=== PATIENT | female | born 1975 | race Caucasian/White ===

== ENCOUNTER 2020-04-07 15:30 | Emergency (ER) | payer MEDICARE, MEDICAID, SELFPAY ==
[2020-04-07 16:01] VITALS: BP 125/87; PULSE 115; RESP 20; TEMP 36.9; O2SAT 96; BMI 28.2
[2020-04-07 16:05] VITALS: BP 125/87; PULSE 115; RESP 20; TEMP 36.9; O2SAT 96
--- NOTE | 2020-04-07 16:17 | PC.NURSE ---
Med rec completed with [facility] pharmacy, pt states she only takes gabapentin at this time.
--- NOTE | 2020-04-07 16:28 | ED_ITS ---
HPI - Psych General Chief Complaint: ETOH/Substance Use Stated Complaint: PSYCH EVAL Time Seen by Provider: 04/07/20 16:26 Source: patient and EMS Mode of arrival: EMS Limitations: no limitations History of Present Illness HPI Narrative: This is a 44-year-old female came in by ambulance after having a verbal argument with her ex partner, patient feels depressed and frustrated because of the patient declined SI or HI. Patient has been of drugs has been on methadone she did not take for the past 8 days. Today patient admitted to drinking plenty of heavy liquor. Patient otherwise declined any other medical complaints. Despite patient declined any physical injury police was involved in the case. Related Data Home Medications Medication Instructions Recorded Confirmed acamprosate 333 mg PO BID 04/07/20 04/07/20 baclofen 1 tab PO DAILY 04/07/20 04/07/20 buspirone 10 mg PO DIRECTED 04/07/20 04/07/20 folic acid 1 tab PO DAILY 04/07/20 04/07/20 gabapentin 1 tab PO TID 04/07/20 04/07/20 gabapentin 400 mg PO TID 04/07/20 04/07/20 thiamine HCl (vitamin B1) 1 ea PO DAILY 04/07/20 04/07/20 Allergies Allergy/AdvReac Type Severity Reaction Status Date / Time penicillin V Allergy Unknown hives Unverified 02/20/19 00:00 Penicillins [PENICILLINS] Allergy Unknown HIVES Unverified 12/14/19 16:56 Review of Systems Review of Systems: All other systems are reviewed and are negative Constitutional: Reports as per HPI and Reports no additional constitutional complaints Eyes: Reports as per HPI and Reports no additional eye complaints Reports system reviewed and no additional complaints, except as documented Cardiovascular: Reports as per HPI and Reports no additional cardiovascular complaints Respiratory: Reports as per HPI and Reports no additional respiratory complaints Gastrointestinal: Reports as per HPI and Reports no additional gastrointestinal complaints Genitourinary: Reports no additional female genitourinary complaints Musculoskeletal: Reports no additional musculoskeletal complaints Skin/Breast: Reports system reviewed and no additional complaints, except as docu Psychiatric: Reports no additional psychiatric complaints Endocrine: Reports no additional endocrine complaints Hematologic/Lymphatic: Reports no additional hematologic/lymphatic complaints Allergic/Immunologic: Reports no additional allergic/immunologic complaints Reports system reviewed and no additional complaints, except as documented and Reports Abnormal speech present [facility] Social History Social History Alcohol intake: current Alcohol intake frequency: 3 or more drinks per day Alcohol type: hard liquor Smoking Status: Current every day smoker Use of substances other than those prescribed or required for medical reasons: Unknown Advance Directives: No Advance Directives Information Provided: No Physical Exam Vital Signs: Vital Signs: Last Vital Signs Temp 98.5 F 04/07/20 16:05 Pulse 115 H 04/07/20 16:05 Resp 20 04/07/20 16:05 BP 125/87 04/07/20 16:05 Pulse Ox 96 04/07/20 16:05 Body Mass Index 28.2 Vital signs have been reviewed as normal and appeared to be correct. Blood pressure normal. Tachycardia. Respiration rate normal. Temperature normal. Oxygen saturation normal. Appearance: Alert. Oriented X3. No acute distress. Head: Normal external exam. Normocephalic. Atraumatic. No Streeter signs noted. No raccoon eyes noted Eyes: PERRLA. EOMI. Conjunctiva and sclera normal. Eyelids normal. ENT: EAC normal. TM's Normal. Pharynx normal. Uvula midline. Moist mucous membranes. No trismus noted. No drooling noted. No muffled voice noted. Neck: Normal inspection. Neck supple. FROM. No adenopathy. Thyroid Normal. No meningeal signs. No neck mass noted. CVS: Normal heart rate and rhythm. Heart sound normal. No murmurs noted. Pulses normal throughout. Respiratory: No respiratory distress. Painless inspiration. Breath sounds normal. No wheezes/rales/rhonchi noted. Chest nontender. No accessory muscle usage noted or decreased air movement noted. Abdomen: Soft and nontender. Bowel sounds normal in all 4 quadrants. No distention noted. No organomegaly noted. No visible injury noted. Back: No CVA tenderness. Full range of motion noted. Skin: Skin warm and dry. Normal skin color. Normal skin turgor. No rashes/lesions/lacerations noted. Extremities: No lower extremity edema. Extremities exhibit normal range of motion. Extremities nontender. Neuro: Oriented X 3. No motor deficit. No sensory deficit. Reflexes normal. MDM - Psych Restraints Face to Face Assessment: Face to Face Assessment: Current Situation: After assessment of the patient, a review of the pertinent medical record and a discussion with nursing staff, I feel the patient requires a restrain intervention. Reaction To: [] Medical Condition: [] Behavioral State: [] Continued Need: [] Discharge Plan Discharge Prescriptions: No Action gabapentin 400 mg capsule 400 mg PO TID RF: 0 thiamine HCl (vitamin B1) 100 mg tablet 1 ea PO DAILY RF: 0 gabapentin 800 mg tablet 1 tab PO TID RF: 0 baclofen 10 mg tablet 1 tab PO DAILY RF: 0 buspirone 10 mg tablet 10 mg PO DIRECTED RF: 0 folic acid 1 mg tablet 1 tab PO DAILY RF: 0 acamprosate 333 mg tablet,delayed release (DR/EC) 333 mg PO BID RF: 0
[2020-04-07 17:22] LABS: Ethanol 403 mg/dL
--- NOTE | 2020-04-07 18:05 | MHC.RECOVSUP ---
? Reason for consult o Current location: [facility] o Identified substance use concern: Alcohol - Withdrawal and Mental health concern - Looking for Support ? Intervention: o Community resources provided o Harm reduction discussion ? Plan: o Patient waiting to be seen by [facility] (Crisis evaluation) o Patient to follow up with [facility] after discharge ? Additional information: Patient reported That patient was on MAT (Methadone) 8 days ago and did not want any Medications (MAT).
[2020-04-07] MEDS: LORazepam 1 MG TABLET 2 MG PO ×2 (18:41→23:31)
--- NOTE | 2020-04-07 19:24 | PC.NURSE ---
Report received. PT is at the nurse's station expressing concerns that she will be kicked out in the middle of the night. This nurse informed the PT that she will held here until here BAL decreased to a safe level but she would need to reach out to detox facilities in the morning.
[2020-04-07] MEDS: Gabapentin 400 MG CAPSULE PO (21:58)
[2020-04-07] MEDS: Gabapentin 400 MG CAPSULE 800 MG PO (21:58)
[2020-04-07 23:53] VITALS: BP 133/86; PULSE 98; RESP 18; O2SAT 96
--- NOTE | 2020-04-08 07:19 | PC.NURSE ---
Report received from FEDERICA Saunders. Pt resting, resp unlabored.
[2020-04-08] MEDS: Gabapentin 400 MG CAPSULE 800 MG PO (09:18)
[2020-04-08] MEDS: Gabapentin 400 MG CAPSULE PO (09:18)
[2020-04-08] MEDS: LORazepam 1 MG TABLET PO (09:18)
[2020-04-08 09:36] VITALS: BP 147/110; PULSE 121; TEMP 37; O2SAT 96
--- NOTE | 2020-04-08 09:39 | MHC.RECOVSUP ---
Recovery Support note: Patient is a 44 year old [place]ian speaking female who presented [place] [facility] [place]. Patient reports she stopped using methadone 9 days ago and has been drinking heavily since then. Patient reports drinking 1-2 pints of vodka daily and is reporting withdrawal symptoms. RN aware. Patient has been referred to [facility], [facility] and [facility]. This science writer awaits follow up from these facilities.
--- NOTE | 2020-04-08 09:40 | PC.NURSE ---
Late enrty: Pt medicated as ordered for [facility] 13Christ A Elvin notified of current [facility]WA reading. Care team in to assist pt to obtain bed in detox.
[2020-04-08 10:00] VITALS: RESP 20
[2020-04-08 10:35] VITALS: BP 134/95; PULSE 89; RESP 20; O2SAT 20
[2020-04-08] MEDS: LORazepam 1 MG TABLET 2 MG PO (11:03)
--- NOTE | 2020-04-08 12:19 | PC.NURSE ---
Pt given discharge instructions, verbalized understanging of instructions. Pt gait steady, states she is ready to leave. Transportation arranged by CARE team.
== END 2020-04-08 12:22 | disposition home or self-care (01) ==
PROVIDERS: Emergency Provider Emergency Medicine
DX: F33.1 Major depressive disorder, recurrent, moderate (principal); F43.9 Reaction to severe stress, unspecified; Z79.899 Other long term (current) drug therapy; F17.200 Nicotine dependence, unspecified, uncomplicated; Z71.6 Tobacco abuse counseling
CPT/HCPCS: 36415; 80320; 99285

== ENCOUNTER 2020-04-25 12:00 | Outpatient (RCR) | payer MEDICARE, MEDICAID, SELFPAY | END 2020-04-25 23:55 | disposition home or self-care (01) | LOC: HO.PHPA 12:00 | PROVIDERS: Visit Provider Psychiatry & Neurology Psychiatry | DX: F33.2 Major depressive disorder, recurrent severe without psychotic features (principal); F43.10 Post-traumatic stress disorder, unspecified; F10.20 Alcohol dependence, uncomplicated; F11.20 Opioid dependence, uncomplicated | CPT/HCPCS: 90791 ==

== ENCOUNTER 2020-07-16 13:14 | Emergency (ER) | payer MEDICARE, MEDICAID, SELFPAY ==
[2020-07-16 13:25] VITALS: BP 116/84; PULSE 116; O2SAT 98
[2020-07-16 14:02] VITALS: BP 107/72; PULSE 112; RESP 22; TEMP 36.9; O2SAT 94; BMI 23.3
[2020-07-16 15:16] LABS: MANUAL DIFF FLAG NO
[2020-07-16 15:23] LABS: Basophils Absolute Auto 0.1 X10*3/uL (0.0-0.2); Basophils Percent Auto 1.1 % (0-2); Eosinophils Percent Auto 0.4 % (0-4); Hematocrit 45.7 % (37-47); Hemoglobin 14.2 g/dl (12.0-16.0); Imm Gran Abs Auto 0.02 X10*3/uL (0.00-0.03); Imm Gran Pct Auto 0.4 % (0.0-0.4); Lymphocytes Percent Auto 44.7 % (20-40); Mean Corpuscular HGB Conc 31.1 g/dl (31.0-35.0); Mean Corpuscular Hemoglobin 24.7 pg (27.0-33.0); Mean Corpuscular Volume 79.6 fL (80-98); Mean Platelet Volume 9.3 fL (9.4-12.3); Monocytes Absolute Auto 0.1 X10*3/uL (0.1-1.2); Monocytes Percent Auto 2.9 % (2-11); Neutrophils Absolute Auto 2.3 X10*3/uL (2.0-8.3); Neutrophils Percent Auto 50.5 % (45-73); Platelet Count 193 X10*3/uL (160-400); Red Blood Count 5.74 X10*6/uL (4.20-5.50); Red Cell Distribution Width 27.6 % (11.0-16.0); White Blood Count 4.6 X10*3/uL (4.8-10.8)
--- NOTE | 2020-07-16 15:34 | ED.GENADULT ---
HPI - General Adult General Chief complaint: ETOH/Substance Use <SAVANNAH Ramirez - Last Filed: 07/16/20 18:43> Stated complaint: ETOH,CRISIS <SAVANNAH Ramirez - Last Filed: 07/16/20 18:43> Time Seen by Provider: 07/16/20 14:00 <SAVANNAH Ramirez - Last Filed: 07/16/20 18:43> Source: patient <SAVANNAH Ramirez - Last Filed: 07/16/20 18:43> Mode of arrival: ambulatory <SAVANNAH Ramirez - Last Filed: 07/16/20 18:43> Limitations: no limitations <SAVANNAH Ramirez Last Filed: 07/16/20 18:43> History of Present Illness HPI narrative: Patient presents to the ED seeking detox. Patient states she would like to stop drinking. Patient denies any suicidal/homicidal ideation. Patient denies any head trauma, falling to the ground, or neck pain. <SAVANNAH Ramirez - Last Filed: 07/16/20 18:43> Related Data Home medications: Home Medications Medication Instructions Recorded Confirmed acamprosate 333 mg PO BID 04/07/20 07/17/20 buspirone 10 mg PO DIRECTED 04/07/20 07/17/20 gabapentin 1 cap PO TID 07/17/20 07/17/20 ibuprofen 1 tab PO BID PRN 07/17/20 07/17/20 multivitamin [Daily-Zoila] 1 tab PO DAILY 07/17/20 07/17/20 prazosin 1 cap PO BEDTIME 07/17/20 07/17/20 thiamine HCl (vitamin B1) 1 ea PO DAILY 07/17/20 07/17/20 topiramate 1 tab PO BEDTIME 07/17/20 07/17/20 trazodone 1 tab PO BEDTIME 07/17/20 07/17/20 <SAVANNAH Ramirez Last Filed: 07/16/20 18:43> Allergies/adverse reactions: Allergies Allergy/AdvReac Type Severity Reaction Status Date / Time penicillin V Allergy Unknown hives Unverified 02/20/19 00:00 Penicillins [PENICILLINS] Allergy Unknown HIVES Unverified 12/14/19 16:56 <SAVANNAH Ramirez - Last Filed: 07/16/20 18:43> Review of Systems Review of Systems: Yes all other systems are reviewed and are negative <SAVANNAH Ramirez Last Filed: 07/16/20 18:43> Constitutional: Constitutional: Reports as per HPI and Reports no additional constitutional complaints <SAVANNAH Ramirez Last Filed: 07/16/20 18:43> Eyes: Eyes: Reports as per HPI and Reports no additional eye complaints <SAVANNAH Ramirez Last Filed: 07/16/20 18:43> ENT: Reports system reviewed and no additional complaints, except as documented and Reports as per HPI <SAVANNAH Ramirez Last Filed: 07/16/20 18:43> Cardiovascular: Cardiovascular: Reports as per HPI and Reports no additional cardiovascular complaints <SAVANNAH Ramirez Last Filed: 07/16/20 18:43> Respiratory: Respiratory: Reports as per HPI and Reports no additional respiratory complaints <SAVANNAH Ramirez Last Filed: 07/16/20 18:43> Gastrointestinal: Gastrointestinal: Reports as per HPI and Reports no additional gastrointestinal complaints <SAVANNAH Ramirez Last Filed: 07/16/20 18:43> Genitourinary: Genitourinary: Reports no additional female genitourinary complaints and Reports as per HPI <SAVANNAH Ramirez Last Filed: 07/16/20 18:43> Integumentary/Breasts: Skin/Breast: Reports system reviewed and no additional complaints, except as docu and Reports as per HPI <SAVANNAH Ramirez Last Filed: 07/16/20 18:43> Neurologic: Reports system reviewed and no additional complaints, except as documented and Reports as per HPI <SAVANNAH Ramirez Last Filed: 07/16/20 18:43> Psychiatric: Psychiatric: Reports no additional psychiatric complaints and Reports as per HPI <SAVANNAH Ramirez Last Filed: 07/16/20 18:43> Comments: Alcohol on breath <SAVANNAH Ramirez Last Filed: 07/16/20 18:43> PMFSH Past Medical History Medical History: Medical History (Updated 07/16/20 @ 14:03 by Tanya Perla) No known health problems <SAVANNAH Ramirez Last Filed: 07/16/20 18:43> Social History Social History: Social History Household Members: Children Alcohol intake: current Alcohol intake frequency: 3 or more drinks per day Alcohol type: hard liquor Smoking Status: Unknown if ever smoked Use of substances other than those prescribed or required for medical reasons: Yes Substance Use Type: Heroin Advance Directives: No Advance Directives Information Provided: No Patient : No <SAVANNAH Ramirez - Last Filed: 07/16/20 18:43> Physical Exam Vital Signs: Vital Signs: Last Vital Signs Temp 98.8 F 07/16/20 21:27 Pulse 131 H 07/17/20 01:12 Resp 07/17/20 01:12 BP 135/92 H 07/17/20 01:12 Pulse Ox 98 07/17/20 01:12 Body Mass Index 23.3 <SAVANNAH Ramirez - Last Filed: 07/16/20 18:43> Vital Signs: Last Vital Signs Temp 98.8 F 07/16/20 21:27 Pulse 131 H 07/17/20 01:12 Resp 07/17/20 01:12 BP 135/92 H 07/17/20 01:12 Pulse Ox 98 07/17/20 01:12 Body Mass Index 23.3 <SAVANNAH West - Last Filed: 07/17/20 08:13> Vital Signs: Last Vital Signs Temp 98.8 F 07/16/20 21:27 Pulse 131 H 07/17/20 01:12 Resp 07/17/20 01:12 BP 135/92 H 07/17/20 01:12 Pulse Ox 98 07/17/20 01:12 Body Mass Index 23.3 <Taran Shah MD - Last Filed: 08/10/20 00:32> Const: General: cooperative, healthy appearing, comfortable, no acute distress, well developed, alert, awake and Physically active <SAVANNAH Ramirez - Last Filed: 07/16/20 18:43> Orientation/consciousness: patient oriented x3 <SAVANNAH Ramirez - Last Filed: 07/16/20 18:43> HENMT: Head: Yes normal to inspection, Yes No palpable skull fracture present, Yes normocephalic and Yes atraumatic <SAVANNAH Ramirez - Last Filed: 07/16/20 18:43> Eyes: General: appearance normal, both eyes and all related structures <SAVANNAH Ramirez Last Filed: 07/16/20 18:43> Neck: Neck: Yes normal visual inspection, Yes full ROM, Yes no lymphadenopathy, Yes no meningeal signs, Yes trachea midline, Yes supple and No tender <SAVANNAH Ramirez Last Filed: 07/16/20 18:43> Chest: Chest palpation & inspection: normal inspection of the chest and normal palpation of entire chest wall <SAVANNAH Ramirez Last Filed: 07/16/20 18:43> Resp: Effort & Inspection: normal respiratory effort and able to speak in complete sentences <SAVANNAH Ramirez Last Filed: 07/16/20 18:43> Auscultation: clear to auscultation bilaterally <SAVANNAH Ramirez Last Filed: 07/16/20 18:43> Cardio: Jugular venous distension: no JVD <SAVANNAH Ramirez Last Filed: 07/16/20 18:43> Heart sounds: S1 normal heart sound present and S2 normal heart sound present <SAVANNAH Ramirez Last Filed: 07/16/20 18:43> GI: Inspection: Yes normal to inspection and No abdominal wall ecchymosis <SAVANNAH Ramirez Last Filed: 07/16/20 18:43> Palpation (GI): Soft to palpation, not firm, nontender, no guarding and not rigid <SAVANNAH Ramirez Last Filed: 07/16/20 18:43> : General: No CVA tenderness and Yes no CVA tenderness <SAVANNAH Ramirez Last Filed: 07/16/20 18:43> Back/Spine/Pelvis: Back: no CVA tenderness, No CVA tenderness and No back tenderness <SAVANNAH Ramirez Last Filed: 07/16/20 18:43> Skin: General skin exam: no rashes or lesions noted and elasticity normal <SAVANNAH Ramirez Last Filed: 07/16/20 18:43> Neuro: General: patient oriented x3, no meningeal signs and CN's II-XI intact bilaterally <SAVANNAH Ramirez - Last Filed: 07/16/20 18:43> Cranial nerves: Yes CN's II-XII intact bilaterally <SAVANNAH Ramirez - Last Filed: 07/16/20 18:43> Extrem: General: Yes normal to inspection and Yes full ROM <SAVANNAH Ramirez - Last Filed: 07/16/20 18:43> Psych: Other: Alcohol on breath <SAVANNAH Ramirez - Last Filed: 07/16/20 18:43> Appearance: grossly normal and well kempt <SAVANNAH Ramirez - Last Filed: 07/16/20 18:43> Course Course Course Narrative: Patient will have medical evaluation/labs drawn and then will have his detox counselor evaluated <SAVANNAH Ramirez - Last Filed: 07/16/20 18:43> I have reviewed the chart <Taran Shah MD - Last Filed: 08/10/20 00:32> Reevaluation(s) Reevaluation #1: Detox counselor evaluated patient and states she should stay overnight because patient have a bed at detox program tomorrow morning. Patient alcohol level of 450. <SAVANNAH Ramirez - Last Filed: 07/16/20 18:43> Medical Decision Making MDM Narrative Medical decision making narrative: Alcohol abuse <SAVANNAH Ramirez - Last Filed: 07/16/20 18:43> Lab Data Result diagrams: : 07/16/20 15:10 07/16/20 15:10 <SAVANNAH Ramirez - Last Filed: 07/16/20 18:43> Labs: Lab Results 07/16/20 07/16/20 07/16/20 Range/Units 15:10 15:10 15:10 WBC 4.6 L (4.8-10.8) X10*3/uL RBC 5.74 H (4.20-5.50) X10*6/uL Hgb 14.2 (12.0-16.0) g/dl Hct 45.7 (37-47) % MCV 79.6 L (80-98) fL MCH 24.7 L (27.0-33.0) pg MCHC 31.1 (31.0-35.0) g/dl RDW 27.6 H (11.0-16.0) % Plt Count 193 (160-400) X10*3/uL MPV 9.3 L (9.4-12.3) fL Immature Gran % (Auto) 0.4 (0.0-0.4) % Neut % (Auto) 50.5 (45-73) % Lymph % (Auto) 44.7 H (20-40) % [place] % (Auto) 2.9 (2-11) % Eos % (Auto) 0.4 (0-4) % Baso % (Auto) 1.1 (0-2) % Lymph # (Auto) 2.0 (1.2-4.9) X10*3/uL [place] # (Auto) 0.1 (0.1-1.2) X10*3/uL Eos # (Auto) 0.0 (0.0-0.4) X10*3/uL Baso # (Auto) 0.1 (0.0-0.2) X10*3/uL Abs Immat Gran (auto) 0.02 (0.00-0.03) X10*3/uL Absolute Neuts (auto) 2.3 (2.0-8.3) X10*3/uL Absolute Nucleated RBC 0.000 (0.0-0.012) X10*3/uL Nucleated RBC % (auto) 0.0 (0.0-0.2) /100WBC Sodium 147 H (135-145) mmol/L Potassium 3.1 L (3.3-5.1) mmol/L Chloride 109 H (96-108) mmol/L Carbon Dioxide 25 (22-29) mmol/L Anion Gap 16 (12-20) BUN 9 (9-16) mg/dL Creatinine 0.75 (0.5-1.4) mg/dL Estim Creat Clear Calc 87.9 Estimated GFR > 60 Random Glucose 97 (60-115) mg/dL Calcium 8.7 (8.4-10.2) mg/dL Total Bilirubin 2.2 H (0.0-1.0) mg/dL Direct Bilirubin (0.0-0.5) mg/dL AST 276 H (5-31) U/L ALT 121 H (0-31) U/L Alkaline Phosphatase 294 H (39-117) U/L Total Protein 8.6 H (6.5-8.0) g/dL Albumin 3.7 (3.5-5.0) g/dL Urine Test (NEGATIVE) Urine Opiates Screen (Not Detect) Ur Barbiturates Screen (Not Detect) Ur Phencyclidine Scrn (Not Detect) Ur Amphetamines Screen (Not Detect) U Benzodiazepines Scrn (Not Detect) Urine Cocaine Screen (Not Detect) U Marijuana (THC) Screen (Not Detect) Ethyl Alcohol 450 H* mg/dL COVID-19 (CARA) (Negative) COVID-19 Clin Com 07/16/20 07/16/20 07/16/20 Range/Units 15:10 17:38 18:05 WBC (4.8-10.8) X10*3/uL RBC (4.20-5.50) X10*6/uL Hgb (12.0-16.0) g/dl Hct (37-47) % MCV (80-98) fL MCH (27.0-33.0) pg MCHC (31.0-35.0) g/dl RDW (11.0-16.0) % Plt Count (160-400) X10*3/uL MPV (9.4-12.3) fL Immature Gran % (Auto) (0.0-0.4) % Neut % (Auto) (45-73) % Lymph % (Auto) (20-40) % [place] % (Auto) (2-11) % Eos % (Auto) (0-4) % Baso % (Auto) (0-2) % Lymph # (Auto) (1.2-4.9) X10*3/uL [place] # (Auto) (0.1-1.2) X10*3/uL Eos # (Auto) (0.0-0.4) X10*3/uL Baso # (Auto) (0.0-0.2) X10*3/uL Abs Immat Gran (auto) (0.00-0.03) X10*3/uL Absolute Neuts (auto) (2.0-8.3) X10*3/uL Absolute Nucleated RBC (0.0-0.012) X10*3/uL Nucleated RBC % (auto) (0.0-0.2) /100WBC Sodium (135-145) mmol/L Potassium (3.3-5.1) mmol/L Chloride (96-108) mmol/L Carbon Dioxide (22-29) mmol/L Anion Gap (12-20) BUN (9-16) mg/dL Creatinine (0.5-1.4) mg/dL Estim Creat Clear Calc Estimated GFR Random Glucose (60-115) mg/dL Calcium (8.4-10.2) mg/dL Total Bilirubin 2.2 H (0.0-1.0) mg/dL Direct Bilirubin 1.5 H (0.0-0.5) mg/dL AST 271 H (5-31) U/L ALT 119 H (0-31) U/L Alkaline Phosphatase 292 H (39-117) U/L Total Protein 8.5 H (6.5-8.0) g/dL Albumin 3.6 (3.5-5.0) g/dL Urine Test (NEGATIVE) Urine Opiates Screen Not Detected (Not Detect) Ur Barbiturates Screen Not Detected (Not Detect) Ur Phencyclidine Scrn Not Detected (Not Detect) Ur Amphetamines Screen Not Detected (Not Detect) U Benzodiazepines Scrn POSITIVE H (Not Detect) Urine Cocaine Screen POSITIVE H (Not Detect) U Marijuana (THC) Screen Not Detected (Not Detect) Ethyl Alcohol mg/dL COVID-19 (CARA) Negative (Negative) COVID-19 Clin Com See Note 07/16/20 Range/Units 18:59 WBC (4.8-10.8) X10*3/uL RBC (4.20-5.50) X10*6/uL Hgb (12.0-16.0) g/dl Hct (37-47) % MCV (80-98) fL MCH (27.0-33.0) pg MCHC (31.0-35.0) g/dl RDW (11.0-16.0) % Plt Count (160-400) X10*3/uL MPV (9.4-12.3) fL Immature Gran % (Auto) (0.0-0.4) % Neut % (Auto) (45-73) % Lymph % (Auto) (20-40) % [place] % (Auto) (2-11) % Eos % (Auto) (0-4) % Baso % (Auto) (0-2) % Lymph # (Auto) (1.2-4.9) X10*3/uL [place] # (Auto) (0.1-1.2) X10*3/uL Eos # (Auto) (0.0-0.4) X10*3/uL Baso # (Auto) (0.0-0.2) X10*3/uL Abs Immat Gran (auto) (0.00-0.03) X10*3/uL Absolute Neuts (auto) (2.0-8.3) X10*3/uL Absolute Nucleated RBC (0.0-0.012) X10*3/uL Nucleated RBC % (auto) (0.0-0.2) /100WBC Sodium (135-145) mmol/L Potassium (3.3-5.1) mmol/L Chloride (96-108) mmol/L Carbon Dioxide (22-29) mmol/L Anion Gap (12-20) BUN (9-16) mg/dL Creatinine (0.5-1.4) mg/dL Estim Creat Clear Calc Estimated GFR Random Glucose (60-115) mg/dL Calcium (8.4-10.2) mg/dL Total Bilirubin (0.0-1.0) mg/dL Direct Bilirubin (0.0-0.5) mg/dL AST (5-31) U/L ALT (0-31) U/L Alkaline Phosphatase (39-117) U/L Total Protein (6.5-8.0) g/dL Albumin (3.5-5.0) g/dL Urine Test NEGATIVE (NEGATIVE) Urine Opiates Screen (Not Detect) Ur Barbiturates Screen (Not Detect) Ur Phencyclidine Scrn (Not Detect) Ur Amphetamines Screen (Not Detect) U Benzodiazepines Scrn (Not Detect) Urine Cocaine Screen (Not Detect) U Marijuana (THC) Screen (Not Detect) Ethyl Alcohol mg/dL COVID-19 (CARA) (Negative) COVID-19 Clin Com <SAVANNAH Ramirez - Last Filed: 07/16/20 18:43> Lab Results 07/16/20 07/16/20 07/16/20 Range/Units 15:10 15:10 15:10 WBC 4.6 L (4.8-10.8) X10*3/uL RBC 5.74 H (4.20-5.50) X10*6/uL Hgb 14.2 (12.0-16.0) g/dl Hct 45.7 (37-47) % MCV 79.6 L (80-98) fL MCH 24.7 L (27.0-33.0) pg MCHC 31.1 (31.0-35.0) g/dl RDW 27.6 H (11.0-16.0) % Plt Count 193 (160-400) X10*3/uL MPV 9.3 L (9.4-12.3) fL Immature Gran % (Auto) 0.4 (0.0-0.4) % Neut % (Auto) 50.5 (45-73) % Lymph % (Auto) 44.7 H (20-40) % [place] % (Auto) 2.9 (2-11) % Eos % (Auto) 0.4 (0-4) % Baso % (Auto) 1.1 (0-2) % Lymph # (Auto) 2.0 (1.2-4.9) X10*3/uL [place] # (Auto) 0.1 (0.1-1.2) X10*3/uL Eos # (Auto) 0.0 (0.0-0.4) X10*3/uL Baso # (Auto) 0.1 (0.0-0.2) X10*3/uL Abs Immat Gran (auto) 0.02 (0.00-0.03) X10*3/uL Absolute Neuts (auto) 2.3 (2.0-8.3) X10*3/uL Absolute Nucleated RBC 0.000 (0.0-0.012) X10*3/uL Nucleated RBC % (auto) 0.0 (0.0-0.2) /100WBC Sodium 147 H (135-145) mmol/L Potassium 3.1 L (3.3-5.1) mmol/L Chloride 109 H (96-108) mmol/L Carbon Dioxide 25 (22-29) mmol/L Anion Gap 16 (12-20) BUN 9 (9-16) mg/dL Creatinine 0.75 (0.5-1.4) mg/dL Estim Creat Clear Calc 87.9 Estimated GFR > 60 Random Glucose 97 (60-115) mg/dL Calcium 8.7 (8.4-10.2) mg/dL Total Bilirubin 2.2 H (0.0-1.0) mg/dL Direct Bilirubin (0.0-0.5) mg/dL AST 276 H (5-31) U/L ALT 121 H (0-31) U/L Alkaline Phosphatase 294 H (39-117) U/L Total Protein 8.6 H (6.5-8.0) g/dL Albumin 3.7 (3.5-5.0) g/dL Urine Test (NEGATIVE) Urine Opiates Screen (Not Detect) Ur Barbiturates Screen (Not Detect) Ur Phencyclidine Scrn (Not Detect) Ur Amphetamines Screen (Not Detect) U Benzodiazepines Scrn (Not Detect) Urine Cocaine Screen (Not Detect) U Marijuana (THC) Screen (Not Detect) Ethyl Alcohol 450 H* mg/dL COVID-19 (CARA) (Negative) COVID-19 Clin Com 07/16/20 07/16/20 07/16/20 Range/Units 15:10 17:38 18:05 WBC (4.8-10.8) X10*3/uL RBC (4.20-5.50) X10*6/uL Hgb (12.0-16.0) g/dl Hct (37-47) % MCV (80-98) fL MCH (27.0-33.0) pg MCHC (31.0-35.0) g/dl RDW (11.0-16.0) % Plt Count (160-400) X10*3/uL MPV (9.4-12.3) fL Immature Gran % (Auto) (0.0-0.4) % Neut % (Auto) (45-73) % Lymph % (Auto) (20-40) % [place] % (Auto) (2-11) % Eos % (Auto) (0-4) % Baso % (Auto) (0-2) % Lymph # (Auto) (1.2-4.9) X10*3/uL [place] # (Auto) (0.1-1.2) X10*3/uL Eos # (Auto) (0.0-0.4) X10*3/uL Baso # (Auto) (0.0-0.2) X10*3/uL Abs Immat Gran (auto) (0.00-0.03) X10*3/uL Absolute Neuts (auto) (2.0-8.3) X10*3/uL Absolute Nucleated RBC (0.0-0.012) X10*3/uL Nucleated RBC % (auto) (0.0-0.2) /100WBC Sodium (135-145) mmol/L Potassium (3.3-5.1) mmol/L Chloride (96-108) mmol/L Carbon Dioxide (22-29) mmol/L Anion Gap (12-20) BUN (9-16) mg/dL Creatinine (0.5-1.4) mg/dL Estim Creat Clear Calc Estimated GFR Random Glucose (60-115) mg/dL Calcium (8.4-10.2) mg/dL Total Bilirubin 2.2 H (0.0-1.0) mg/dL Direct Bilirubin 1.5 H (0.0-0.5) mg/dL AST 271 H (5-31) U/L ALT 119 H (0-31) U/L Alkaline Phosphatase 292 H (39-117) U/L Total Protein 8.5 H (6.5-8.0) g/dL Albumin 3.6 (3.5-5.0) g/dL Urine Test (NEGATIVE) Urine Opiates Screen Not Detected (Not Detect) Ur Barbiturates Screen Not Detected (Not Detect) Ur Phencyclidine Scrn Not Detected (Not Detect) Ur Amphetamines Screen Not Detected (Not Detect) U Benzodiazepines Scrn POSITIVE H (Not Detect) Urine Cocaine Screen POSITIVE H (Not Detect) U Marijuana (THC) Screen Not Detected (Not Detect) Ethyl Alcohol mg/dL COVID-19 (CARA) Negative (Negative) COVID-19 Clin Com See Note 07/16/20 Range/Units 18:59 WBC (4.8-10.8) X10*3/uL RBC (4.20-5.50) X10*6/uL Hgb (12.0-16.0) g/dl Hct (37-47) % MCV (80-98) fL MCH (27.0-33.0) pg MCHC (31.0-35.0) g/dl RDW (11.0-16.0) % Plt Count (160-400) X10*3/uL MPV (9.4-12.3) fL Immature Gran % (Auto) (0.0-0.4) % Neut % (Auto) (45-73) % Lymph % (Auto) (20-40) % [place] % (Auto) (2-11) % Eos % (Auto) (0-4) % Baso % (Auto) (0-2) % Lymph # (Auto) (1.2-4.9) X10*3/uL [place] # (Auto) (0.1-1.2) X10*3/uL Eos # (Auto) (0.0-0.4) X10*3/uL Baso # (Auto) (0.0-0.2) X10*3/uL Abs Immat Gran (auto) (0.00-0.03) X10*3/uL Absolute Neuts (auto) (2.0-8.3) X10*3/uL Absolute Nucleated RBC (0.0-0.012) X10*3/uL Nucleated RBC % (auto) (0.0-0.2) /100WBC Sodium (135-145) mmol/L Potassium (3.3-5.1) mmol/L Chloride (96-108) mmol/L Carbon Dioxide (22-29) mmol/L Anion Gap (12-20) BUN (9-16) mg/dL Creatinine (0.5-1.4) mg/dL Estim Creat Clear Calc Estimated GFR Random Glucose (60-115) mg/dL Calcium (8.4-10.2) mg/dL Total Bilirubin (0.0-1.0) mg/dL Direct Bilirubin (0.0-0.5) mg/dL AST (5-31) U/L ALT (0-31) U/L Alkaline Phosphatase (39-117) U/L Total Protein (6.5-8.0) g/dL Albumin (3.5-5.0) g/dL Urine Test NEGATIVE (NEGATIVE) Urine Opiates Screen (Not Detect) Ur Barbiturates Screen (Not Detect) Ur Phencyclidine Scrn (Not Detect) Ur Amphetamines Screen (Not Detect) U Benzodiazepines Scrn (Not Detect) Urine Cocaine Screen (Not Detect) U Marijuana (THC) Screen (Not Detect) Ethyl Alcohol mg/dL COVID-19 (CARA) (Negative) COVID-19 Clin Com <SAVANNAH West - Last Filed: 07/17/20 08:13> Lab Results 07/16/20 07/16/20 07/16/20 Range/Units 15:10 15:10 15:10 WBC 4.6 L (4.8-10.8) X10*3/uL RBC 5.74 H (4.20-5.50) X10*6/uL Hgb 14.2 (12.0-16.0) g/dl Hct 45.7 (37-47) % MCV 79.6 L (80-98) fL MCH 24.7 L (27.0-33.0) pg MCHC 31.1 (31.0-35.0) g/dl RDW 27.6 H (11.0-16.0) % Plt Count 193 (160-400) X10*3/uL MPV 9.3 L (9.4-12.3) fL Immature Gran % (Auto) 0.4 (0.0-0.4) % Neut % (Auto) 50.5 (45-73) % Lymph % (Auto) 44.7 H (20-40) % [place] % (Auto) 2.9 (2-11) % Eos % (Auto) 0.4 (0-4) % Baso % (Auto) 1.1 (0-2) % Lymph # (Auto) 2.0 (1.2-4.9) X10*3/uL [place] # (Auto) 0.1 (0.1-1.2) X10*3/uL Eos # (Auto) 0.0 (0.0-0.4) X10*3/uL Baso # (Auto) 0.1 (0.0-0.2) X10*3/uL Abs Immat Gran (auto) 0.02 (0.00-0.03) X10*3/uL Absolute Neuts (auto) 2.3 (2.0-8.3) X10*3/uL Absolute Nucleated RBC 0.000 (0.0-0.012) X10*3/uL Nucleated RBC % (auto) 0.0 (0.0-0.2) /100WBC Sodium 147 H (135-145) mmol/L Potassium 3.1 L (3.3-5.1) mmol/L Chloride 109 H (96-108) mmol/L Carbon Dioxide 25 (22-29) mmol/L Anion Gap 16 (12-20) BUN 9 (9-16) mg/dL Creatinine 0.75 (0.5-1.4) mg/dL Estim Creat Clear Calc 87.9 Estimated GFR > 60 Random Glucose 97 (60-115) mg/dL Calcium 8.7 (8.4-10.2) mg/dL Total Bilirubin 2.2 H (0.0-1.0) mg/dL Direct Bilirubin (0.0-0.5) mg/dL AST 276 H (5-31) U/L ALT 121 H (0-31) U/L Alkaline Phosphatase 294 H (39-117) U/L Total Protein 8.6 H (6.5-8.0) g/dL Albumin 3.7 (3.5-5.0) g/dL Urine Test (NEGATIVE) Urine Opiates Screen (Not Detect) Ur Barbiturates Screen (Not Detect) Ur Phencyclidine Scrn (Not Detect) Ur Amphetamines Screen (Not Detect) U Benzodiazepines Scrn (Not Detect) Urine Cocaine Screen (Not Detect) U Marijuana (THC) Screen (Not Detect) Ethyl Alcohol 450 H* mg/dL COVID-19 (CARA) (Negative) COVID-19 Clin Com 07/16/20 07/16/20 07/16/20 Range/Units 15:10 17:38 18:05 WBC (4.8-10.8) X10*3/uL RBC (4.20-5.50) X10*6/uL Hgb (12.0-16.0) g/dl Hct (37-47) % MCV (80-98) fL MCH (27.0-33.0) pg MCHC (31.0-35.0) g/dl RDW (11.0-16.0) % Plt Count (160-400) X10*3/uL MPV (9.4-12.3) fL Immature Gran % (Auto) (0.0-0.4) % Neut % (Auto) (45-73) % Lymph % (Auto) (20-40) % [place] % (Auto) (2-11) % Eos % (Auto) (0-4) % Baso % (Auto) (0-2) % Lymph # (Auto) (1.2-4.9) X10*3/uL [place] # (Auto) (0.1-1.2) X10*3/uL Eos # (Auto) (0.0-0.4) X10*3/uL Baso # (Auto) (0.0-0.2) X10*3/uL Abs Immat Gran (auto) (0.00-0.03) X10*3/uL Absolute Neuts (auto) (2.0-8.3) X10*3/uL Absolute Nucleated RBC (0.0-0.012) X10*3/uL Nucleated RBC % (auto) (0.0-0.2) /100WBC Sodium (135-145) mmol/L Potassium (3.3-5.1) mmol/L Chloride (96-108) mmol/L Carbon Dioxide (22-29) mmol/L Anion Gap (12-20) BUN (9-16) mg/dL Creatinine (0.5-1.4) mg/dL Estim Creat Clear Calc Estimated GFR Random Glucose (60-115) mg/dL Calcium (8.4-10.2) mg/dL Total Bilirubin 2.2 H (0.0-1.0) mg/dL Direct Bilirubin 1.5 H (0.0-0.5) mg/dL AST 271 H (5-31) U/L ALT 119 H (0-31) U/L Alkaline Phosphatase 292 H (39-117) U/L Total Protein 8.5 H (6.5-8.0) g/dL Albumin 3.6 (3.5-5.0) g/dL Urine Test (NEGATIVE) Urine Opiates Screen Not Detected (Not Detect) Ur Barbiturates Screen Not Detected (Not Detect) Ur Phencyclidine Scrn Not Detected (Not Detect) Ur Amphetamines Screen Not Detected (Not Detect) U Benzodiazepines Scrn POSITIVE H (Not Detect) Urine Cocaine Screen POSITIVE H (Not Detect) U Marijuana (THC) Screen Not Detected (Not Detect) Ethyl Alcohol mg/dL COVID-19 (CARA) Negative (Negative) COVID-19 Clin Com See Note 07/16/20 Range/Units 18:59 WBC (4.8-10.8) X10*3/uL RBC (4.20-5.50) X10*6/uL Hgb (12.0-16.0) g/dl Hct (37-47) % MCV (80-98) fL MCH (27.0-33.0) pg MCHC (31.0-35.0) g/dl RDW (11.0-16.0) % Plt Count (160-400) X10*3/uL MPV (9.4-12.3) fL Immature Gran % (Auto) (0.0-0.4) % Neut % (Auto) (45-73) % Lymph % (Auto) (20-40) % [place] % (Auto) (2-11) % Eos % (Auto) (0-4) % Baso % (Auto) (0-2) % Lymph # (Auto) (1.2-4.9) X10*3/uL [place] # (Auto) (0.1-1.2) X10*3/uL Eos # (Auto) (0.0-0.4) X10*3/uL Baso # (Auto) (0.0-0.2) X10*3/uL Abs Immat Gran (auto) (0.00-0.03) X10*3/uL Absolute Neuts (auto) (2.0-8.3) X10*3/uL Absolute Nucleated RBC (0.0-0.012) X10*3/uL Nucleated RBC % (auto) (0.0-0.2) /100WBC Sodium (135-145) mmol/L Potassium (3.3-5.1) mmol/L Chloride (96-108) mmol/L Carbon Dioxide (22-29) mmol/L Anion Gap (12-20) BUN (9-16) mg/dL Creatinine (0.5-1.4) mg/dL Estim Creat Clear Calc Estimated GFR Random Glucose (60-115) mg/dL Calcium (8.4-10.2) mg/dL Total Bilirubin (0.0-1.0) mg/dL Direct Bilirubin (0.0-0.5) mg/dL AST (5-31) U/L ALT (0-31) U/L Alkaline Phosphatase (39-117) U/L Total Protein (6.5-8.0) g/dL Albumin (3.5-5.0) g/dL Urine Test NEGATIVE (NEGATIVE) Urine Opiates Screen (Not Detect) Ur Barbiturates Screen (Not Detect) Ur Phencyclidine Scrn (Not Detect) Ur Amphetamines Screen (Not Detect) U Benzodiazepines Scrn (Not Detect) Urine Cocaine Screen (Not Detect) U Marijuana (THC) Screen (Not Detect) Ethyl Alcohol mg/dL COVID-19 (CARA) (Negative) COVID-19 Clin Com <Taran Shah MD - Last Filed: 08/10/20 00:32> Discharge Plan Discharge Clinical Impression: Alcohol abuse <SAVANNAH Ramirez - Last Filed: 07/16/20 18:43> Patient Disposition: Home, Self-Care <SAVANNAH Ramirez - Last Filed: 07/16/20 18:43> Instructions: Abuse of Alcohol (ED), Alcohol Use Disorder (ED) <SAVANNAH Ramirez - Last Filed: 07/16/20 18:43> Additional Instructions: Your offer detox please follow-up with the detox bed as scheduled return if any new or worsening symptoms. Stay abstinent of any alcohol. <SAVANNAH Ramirez - Last Filed: 07/16/20 18:43> Prescriptions: No Action buspirone 10 mg tablet 10 mg PO DIRECTED RF: 0 acamprosate 333 mg tablet,delayed release (DR/EC) 333 mg PO BID RF: 0 multivitamin [Daily-Zoila] Tablet 1 tab PO DAILY RF: 0 prazosin 1 mg capsule 1 cap PO BEDTIME RF: 0 gabapentin 400 mg capsule 1 cap PO TID RF: 0 thiamine HCl (vitamin B1) 100 mg tablet 1 ea PO DAILY RF: 0 trazodone 100 mg tablet 1 tab PO BEDTIME RF: 0 topiramate 200 mg tablet 1 tab PO BEDTIME RF: 0 ibuprofen 600 mg tablet 1 tab PO BID PRN (Reason: Pain) RF: 0 <SAVANNAH Ramirez - Last Filed: 07/16/20 18:43> Referrals: [facility] [Primary Care Provider] - 2 days <SAVANNAH Ramirez - Last Filed: 07/16/20 18:43> Interventions: ED Discharge Assessment Last Done: 07/17/20 08:24 <SAVANNAH Ramirez - Last Filed: 07/16/20 18:43> Discharge Date/Time: 07/17/20 08:24 <SAVANNAH Ramirez - Last Filed: 07/16/20 18:43> Print Language: [place] <SAVANNAH Ramierz - Last Filed: 07/16/20 18:43>
[2020-07-16 15:50] LABS: Ethanol 450 mg/dL
[2020-07-16] MEDS: LORazepam 1 MG TABLET PO ×2 (15:55→21:05)
[2020-07-16 16:02] LABS: Alanine Aminotransferase 121 U/L (0-31); Albumin Level 3.7 g/dL (3.5-5.0); Alkaline Phosphatase 294 U/L (39-117); Anion Gap 16 (12-20); Aspartate Amino Transferase 276 U/L (5-31); Bilirubin Total 2.2 mg/dL (0.0-1.0); Blood Urea Nitrogen 9 mg/dL (9-16); Calcium 8.7 mg/dL (8.4-10.2); Carbon Dioxide 25 mmol/L (22-29); Chloride 109 mmol/L (96-108); Creatinine Clr Calc Pharmacy 87.9; Estimated Glomerular Filt Rate > 60; Glucose Random 97 mg/dL (60-115); Potassium 3.1 mmol/L (3.3-5.1); Sodium 147 mmol/L (135-145); Total Protein 8.6 g/dL (6.5-8.0)
[2020-07-16 16:03] LABS: Alanine Aminotransferase 119 U/L (0-31); Albumin Level 3.6 g/dL (3.5-5.0); Alkaline Phosphatase 292 U/L (39-117); Aspartate Amino Transferase 271 U/L (5-31); Bilirubin Direct 1.5 mg/dL (0.0-0.5); Bilirubin Total 2.2 mg/dL (0.0-1.0); Total Protein 8.5 g/dL (6.5-8.0)
--- NOTE | 2020-07-16 17:31 | PC.NURSE ---
Pt transferred from main ED. Pt alert, speech thick, admits to using 'dope' yesterday and etoh today. States she bought methadone from the street 2 days ago. Pt states partner's is today. Pt able to ambulate, gait steady.
--- NOTE | 2020-07-16 18:02 | PC.NURSE ---
Pt overhheard stating to someone on the telephone that she may be . Requesting urine sample - given as requested and sent.
[2020-07-16 18:07] LABS: COVID-19 Test Negative (Negative); IDNOW Serial# 9DD0AD1C
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
--- NOTE | 2020-07-16 18:17 | PC.NURSE ---
pt seen by project manager/team coach. n october aware of pt comment re:. ativan held until urine resulted. pt aware.
[2020-07-16] MEDS: Potassium Chloride Packet 20 MEQ PACKET 40 MEQ PO (18:45)
[2020-07-16 18:52] LABS: Amphetamine Screen Urine Not Detected (Not Detect); Barbiturates, Urine Not Detected (Not Detect); Benzodiazepines Screen Urine POSITIVE (Not Detect); Cannabinoid Screen Urine Not Detected (Not Detect); Cocaine Screen Urine POSITIVE (Not Detect); Opiate Screen Urine Not Detected (Not Detect); Phencyclidine Screen Urine Not Detected (Not Detect)
[2020-07-16 19:04] LABS: UPreg QC Valid YES; Urine Pregnancy NEGATIVE (NEGATIVE)
--- NOTE | 2020-07-16 20:24 | ECG_ITS ---
Test Reason : baseline Blood Pressure : / mmHG Vent. Rate : 120 BPM Atrial Rate : 120 BPM P-R Int : 152 ms QRS Dur : 082 ms QT Int : 330 ms P-R-T Axes : 068 024 064 degrees QTc Int : 466 ms Sinus tachycardia Otherwise normal ECG No previous ECGs available Referred By: Zaira Hess Electronically Signed By:Shaggy Sanchez
--- NOTE | 2020-07-16 21:17 | PC.NURSE ---
Patient compliant with EKG procedure, BP 150/89, HR 123, CIWA was 4, Ativan 1 mg administered as ordered, no distress reported, will continue to monitor.
[2020-07-16 21:27] VITALS: BP 150/89; PULSE 119; RESP 18; TEMP 37.1; O2SAT 95
--- NOTE | 2020-07-17 00:21 | MHC.CARE ---
CARE team requested additional labs and testing to be completed so that they could be included in packet of medical records being faxed to [facility] for admission in the morning. Faxed to [facility]: ED Provider note ED Labs Report - in addition to standard medical labs, the following were also completed: covid, ethanol, tox screen, test, EKG ED Visit Summary EKG CARE team or Recovery support team will follow up with [facility] in the morning to confirm and coordinate admission.
--- NOTE | 2020-07-17 00:28 | PC.NURSE ---
KATHYN faxed/called/spoke with Meaghan/confirmed receipt of referral.
[2020-07-17 01:12] VITALS: BP 135/92; PULSE 131; RESP 15; O2SAT 98
[2020-07-17] MEDS: LORazepam 1 MG TABLET 2 MG PO (01:13)
--- NOTE | 2020-07-17 01:15 | PC.NURSE ---
Patient in bed appears restless, vital signs assess, HR 131, scored 12 on CIWA, provider notified/ordered Ativan 2 mg administered as ordered patient compliant. will continue to onitor.
--- NOTE | 2020-07-17 07:04 | PC.NURSE ---
Report recieved. PT currently sleeping, reporting symptoms of withdrawal. PT calm and cooperative, waiting to be seen by BHN.
[2020-07-17] MEDS: LORazepam 1 MG TABLET PO (07:31)
--- NOTE | 2020-07-17 07:35 | PC.NURSE ---
PT requesting discharge, states she will call [facility] herself from home. PT denies SI/HI, states she wants to get home for her daughters birthday.
--- NOTE | 2020-07-17 08:20 | PC.NURSE ---
PT spoke on phone with [facility], plan to call them tomorrow, possibility for bed tomorrow or wednesday. PT states she really wants to stop drinking, plans to follow up from home tomorrow morning.
== END 2020-07-17 08:24 | disposition home or self-care (01) ==
PROVIDERS: Physician Assistant; Emergency Provider Emergency Medicine
DX: F10.10 Alcohol abuse, uncomplicated (principal); Y90.8 Blood alcohol level of 240 mg/100 ml or more; Z20.822 Contact with and (suspected) exposure to COVID-19; F11.90 Opioid use, unspecified, uncomplicated; F14.90 Cocaine use, unspecified, uncomplicated
CPT/HCPCS: 36415; 80053; 80076; 80307; 80320; 81025; 82248; 85025; 87635; 93005; 99285

== ENCOUNTER 2020-10-10 16:42 | Emergency (ER) | payer MEDICARE, MEDICAID, SELFPAY ==
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
[2020-10-10 16:56] VITALS: BP 122/84; PULSE 115; RESP 18; TEMP 36.5; O2SAT 94; BMI 22.3
[2020-10-10 17:38] LABS: MANUAL DIFF FLAG NO
[2020-10-10 17:51] LABS: Basophils Percent Auto 0.6 % (0-2); Eosinophils Percent Auto 0.6 % (0-4); Hematocrit 38.1 % (37-47); Lymphocytes Absolute Auto 1.1 X10*3/uL (1.2-4.9); Lymphocytes Percent Auto 32.7 % (20-40); Mean Corpuscular HGB Conc 31.5 g/dl (31.0-35.0); Mean Corpuscular Hemoglobin 27.2 pg (27.0-33.0); Mean Corpuscular Volume 86.4 fL (80-98); Mean Platelet Volume 10.5 fL (9.4-12.3); Monocytes Absolute Auto 0.3 X10*3/uL (0.1-1.2); Monocytes Percent Auto 9.6 % (2-11); Neutrophils Absolute Auto 1.9 X10*3/uL (2.0-8.3); Neutrophils Percent Auto 56.5 % (45-73); Red Blood Count 4.41 X10*6/uL (4.20-5.50); Red Cell Distribution Width 21.2 % (11.0-16.0); White Blood Count 3.3 X10*3/uL (4.8-10.8)
[2020-10-10 17:52] LABS: Platelet Count 48 X10*3/uL (160-400)
[2020-10-10 18:02] LABS: Ethanol 453 mg/dL
[2020-10-10 18:04] LABS: Acetaminophen LAB < 1 mcg/mL (<30); Salicylate < 5.0 mg/dL (15-30)
[2020-10-10 18:25] LABS: COVID-19 Test Negative (Negative)
[2020-10-10 21:22] LABS: UPreg QC Valid YES; Urine Pregnancy NEGATIVE (NEGATIVE)
[2020-10-10 21:37] LABS: Amphetamine Screen Urine Not Detected (Not Detect); Barbiturates, Urine POSITIVE (Not Detect); Benzodiazepines Screen Urine POSITIVE (Not Detect); Cannabinoid Screen Urine Not Detected (Not Detect); Cocaine Screen Urine POSITIVE (Not Detect); Opiate Screen Urine Not Detected (Not Detect); Phencyclidine Screen Urine Not Detected (Not Detect)
[2020-10-10 21:54] VITALS: BP 138/89; PULSE 113; O2SAT 96
[2020-10-10] MEDS: chlordiazePOXIDE HCl 25 MG CAPSULE 50 MG PO (21:59)
--- NOTE | 2020-10-10 22:00 | PC.NURSE ---
Patient scored 13 on CIWA, provider notified/ordered Librium 50 mg administered as ordered, will continue to monitor.
--- NOTE | 2020-10-10 23:00 | PC.NURSE ---
Patient woke up, ate her supper, CIWA assess scored 13 provider notified/ordered/Librium 50 mg/administered as ordered, pending effect, no distress observed/reported, currently in bed watching TV, will continue to monitor
--- NOTE | 2020-10-10 23:02 | PC.NURSE ---
BHN referral completed via smart sheet, spoke with anne Concepcion at this time, will continue to monitor.
[2020-10-11 01:12] LABS: Appearance Urine HAZY; Color Urine DARK YELLOW; Glucose Urine UA NEG (NEG); Leukocyte Esterase Urine NEG (NEG); Nitrite Urine NEG (NEG); PH 6.5 (5.0-8.0); Specific Gravity - Urine 1.025 (1.005-1.025); Urine Blood NEG (NEG); Urine Ketones NEG (NEG); Urine Protein TRACE MG/DL (NEG-TRACE)
[2020-10-11 05:51] VITALS: BP 142/95; PULSE 109; RESP 18; TEMP 36.7; O2SAT 96
[2020-10-11] MEDS: chlordiazePOXIDE HCl 25 MG CAPSULE PO (05:57)
--- NOTE | 2020-10-11 06:22 | PC.NURSE ---
Patient just woke up for bathroom use, observed tremulous and diaphoretic, CIWA assessed scored 13, provider notified/ verbally ordered Liberium 25 mg/order entered/read back to provider/confirmed/medication administered as ordered, pending effect. Awaiting BHN assessment in the morning, will continue to monitor.
--- NOTE | 2020-10-11 07:08 | PC.NURSE ---
patient continues to remain asleep at present, respirations are even and unlabored. patient appears in no distress
[2020-10-11 08:13] VITALS: BP 146/102; PULSE 106; RESP 17; TEMP 36.2; O2SAT 97
[2020-10-11] MEDS: LORazepam 1 MG TABLET 2 MG PO (08:30)
[2020-10-11 11:14] LABS: MANUAL DIFF FLAG SCAN; Mean Platelet Volume 9.9 fL (9.4-12.3); Neutrophils Absolute Auto 0.5 X10*3/uL (2.0-8.3); PLT CLUMP 1; Red Cell Distribution Width 20.5 % (11.0-16.0); SCAN SMEAR FLAG 1
[2020-10-11 11:16] LABS: Hematocrit 30.1 % (37-47); Lymphocytes Absolute Auto 0.4 X10*3/uL (1.2-4.9); Lymphocytes Percent Auto 41.2 % (20-40); Mean Corpuscular HGB Conc 31.6 g/dl (31.0-35.0); Mean Corpuscular Hemoglobin 27.1 pg (27.0-33.0); Mean Corpuscular Volume 85.8 fL (80-98); Monocytes Absolute Auto 0.1 X10*3/uL (0.1-1.2); Monocytes Percent Auto 9.8 % (2-11); Red Blood Count 3.51 X10*6/uL (4.20-5.50)
--- NOTE | 2020-10-11 11:28 | MHC.RECOVSUP ---
Recovery Support note: Patient is a 44 year old Montenegrin speaking female who presented to [facility] intoxicated and reporting SI. Patient was evaluated by CARE Team and cleared for discharge. This database report writer met with patient to discuss substance use and treatment options. Patient reports she was previously in [place] for detox and that she is hoping to get into a detox later today. Patient declined remaining in the hospital to work on placement, stating that she wanted to go home to get her belongings. Discussed [facility] with patient and provided her with information on this community support. Patient reports she will go there after discharge to work with the recovery coaches on getting into detox. Discussed medications for alcohol use disorder with patient. Patient reports she was previously on methadone however is interested in getting on Vivitrol. Patient reports she has a provider who she is working with for this. Patient reports she is feeling tired from the medications and she is hoping to rest prior to discharge. Discussed case with CARE Team.
[2020-10-11 11:31] LABS: Hemoglobin 9.5 g/dl (12.0-16.0)
[2020-10-11 11:40] LABS: Platelet Count 29 X10*3/uL (160-400); SLIDE REVIEW VERIFIED
== END 2020-10-11 13:44 | disposition home or self-care (01) ==
PROVIDERS: Nurse Practitioner Family; Emergency Provider Student in an Organized Health Care Education/Training Program
DX: F10.10 Alcohol abuse, uncomplicated (principal); Y90.8 Blood alcohol level of 240 mg/100 ml or more; F19.10 Other psychoactive substance abuse, uncomplicated; Z20.822 Contact with and (suspected) exposure to COVID-19
CPT/HCPCS: 36415; 80143; 80179; 80307; 81003; 81025; 82077; 85025; 87635; 99285

== ENCOUNTER 2020-11-19 14:16 | Outpatient (REF) | payer MEDICARE, MEDICAID, SELFPAY ==
--- NOTE | ~2020-11-19 | XR_ITS ---
EXAMINATION: XR ANKLE, LEFT CLINICAL INFORMATION: Left ankle pain and bruise. COMPARISON: None TECHNIQUE: AP, lateral, and mortise views of the left ankle. FINDINGS: There is a nondisplaced transverse fracture of the lateral malleolus with intra-articular extension. The medial malleolus appears intact. The tibiotalar joint space is unremarkable. Mild to moderate soft tissue swelling is seen more pronounced laterally. XR/XR ankle LT min 3V IMPRESSION: Acute, nondisplaced intra-articular transverse fracture of the lateral malleolus with moderate overlying soft tissue swelling.
== END 2020-11-19 14:17 | disposition home or self-care (01) ==
LOC: HO.XRAY 14:16
PROVIDERS: PCP Internal Medicine; Visit Provider Emergency Medicine
DX: S99.912A Unspecified injury of left ankle, initial encounter (principal)
CPT/HCPCS: 73610

== ENCOUNTER → 2020-11-22 10:14 | Outpatient (BNVA) | payer MEDICARE, MEDICAID, SELFPAY | PROVIDERS: PCP Internal Medicine; Visit Provider Physician Assistant | DX: S82.832A Other fracture of upper and lower end of left fibula, initial encounter for closed fracture (principal) | CPT/HCPCS: 99202 ==

== ENCOUNTER 2021-01-03 07:29 | Outpatient (REF) | payer MEDICARE, MEDICAID, SELFPAY | END 2021-01-03 07:30 | disposition home or self-care (01) | LOC: HO.HOSX 07:29 | PROVIDERS: Visit Provider Physician Assistant | DX: Z13.89 Encounter for screening for other disorder (principal) ==

== ENCOUNTER 2021-01-09 05:10 | Outpatient (REF) | payer MEDICARE, MEDICAID, SELFPAY | END 2021-01-09 05:11 | disposition home or self-care (01) | LOC: HO.HOSX 05:10 | PROVIDERS: Visit Provider Physician Assistant | DX: Z13.89 Encounter for screening for other disorder (principal) ==

== ENCOUNTER 2021-01-31 15:44 | Emergency (ER) | payer MEDICARE, MEDICAID, SELFPAY ==
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
[2021-01-31 16:16] VITALS: BP 234/124; PULSE 92; RESP 22; TEMP 36.8; O2SAT 97; BMI 24.0
[2021-01-31 17:13] VITALS: BP 136/85; PULSE 125; RESP 20; O2SAT 97
[2021-01-31] MEDS: chlordiazePOXIDE HCl 5 MG CAPSULE 25 MG PO ×2 (17:19→20:14)
[2021-01-31 17:44] LABS: MANUAL DIFF FLAG NO
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
[2021-01-31 18:05] LABS: Ethanol 388 mg/dL
[2021-01-31 18:08] LABS: Basophils Percent Auto 0.3 % (0-2); Eosinophils Percent Auto 0.3 % (0-4); Hematocrit 41.6 % (37.0-47.0); Hemoglobin 12.9 g/dl (12.0-16.0); Imm Gran Abs Auto 0.01 X10*3/uL (0.00-0.03); Imm Gran Pct Auto 0.3 % (0.0-0.4); Lymphocytes Absolute Auto 1.4 X10*3/uL (1.2-4.9); Lymphocytes Percent Auto 48.1 % (20-40); Mean Corpuscular Hemoglobin 25.7 pg (27.0-33.0); Monocytes Absolute Auto 0.1 X10*3/uL (0.1-1.2); Monocytes Percent Auto 3.7 % (2-11); Neutrophils Absolute Auto 1.4 x10*3/uL (2.0-8.3); Neutrophils Percent Auto 47.3 % (45-73); Red Blood Count 5.01 X10*6/uL (4.20-5.50); Red Cell Distribution Width 16.3 % (11.0-16.0)
--- NOTE | 2021-01-31 18:10 | PC.NURSE ---
recover varsity baseball coach at bedside speaking to pt about detox beds pt denies si/hi just looking for help to stop drinking
[2021-01-31 18:21] LABS: Alanine Aminotransferase 83 U/L (0-31); Albumin Level 3.9 g/dL (3.5-5.0); Alkaline Phosphatase 272 U/L (39-117); Anion Gap 17 (12-20); Aspartate Amino Transferase 288 U/L (5-31); Bilirubin Direct 1.4 mg/dL (0.0-0.5); Bilirubin Total 2.1 mg/dL (0.0-1.0); Blood Urea Nitrogen 7 mg/dL (9-16); Calcium 8.2 mg/dL (8.4-10.2); Carbon Dioxide 24 mmol/L (22-29); Chloride 108 mmol/L (96-108); Creatinine Clr Calc Pharmacy 82.4; Estimated Glomerular Filt Rate > 60; Glucose Random 140 mg/dL (60-115); Lipase 216 U/L (8-78); Magnesium 1.7 mg/dL (1.6-2.6); Potassium 3.5 mmol/L (3.3-5.1); Sodium 145 mmol/L (135-145); Total Protein 8.6 g/dL (6.5-8.0)
[2021-01-31 18:26] LABS: Platelet Count 59 X10*3/uL (160-400)
[2021-01-31 18:46] VITALS: BP 129/82; PULSE 126; RESP 18; O2SAT 96
[2021-01-31 19:39] VITALS: BP 137/90; PULSE 130; RESP 16; O2SAT 98
--- NOTE | 2021-01-31 19:44 | ECG_ITS ---
Test Reason : TACHYCARDIA Blood Pressure : / mmHG Vent. Rate : 116 BPM Atrial Rate : 116 BPM P-R Int : 154 ms QRS Dur : 084 ms QT Int : 348 ms P-R-T Axes : 062 017 056 degrees QTc Int : 483 ms Sinus tachycardia Otherwise normal ECG No significant changes seen Referred By: Veronica Bush Electronically Signed By:DIOGO MCMULLEN MD
--- NOTE | 2021-01-31 19:45 | MHC.RECOVSUP ---
? Reason for consult:Detox o?? Current location [facility]? o?? Identified substance use concern Alcohol /Heroin ? ?? Withdrawal ?? Seeking ATS (d ? Intervention: o?? ATS bed search started/completed/in process o?? Community resources provided o?? Harm reduction discussion ? Plan: o?? Bed search in progress to ? o?? Patient to follow up with [facility] after discharge ? Additional information: ?Pt was seeking deotx made calls was able to confrimed a bed at [facility].
== END 2021-01-31 21:11 | disposition other institution (70) ==
PROVIDERS: Physician Assistant; Emergency Provider Internal Medicine
DX: F10.120 Alcohol abuse with intoxication, uncomplicated (principal); Y90.8 Blood alcohol level of 240 mg/100 ml or more
CPT/HCPCS: 36415; 70450; 80048; 80076; 82077; 83690; 83735; 85025; 93005; 99284; 99285